=== PATIENT | male | born 1960 | race African-American/Black ===

== ENCOUNTER 2018-10-10 08:11 | Day surgery (SDC) | payer OTHER ==
[2018-10-10] MEDS: CEFAZOLIN 2 GM/50 ML (PMX) 50 ML IVPB (07:00)
[~2018-10-10 08:11] MED LIST: CEFAZOLIN 1 GM INJ; SEVOFLURANE 15 MIN
[2018-10-10] MEDS: SOD CHLORIDE 0.9% 1,000 ML IV ×2 (10:30→22:15)
[2018-10-10 10:39] LABS: ADD MAN DIFF? NO
[2018-10-10 10:43] LABS: HEMATOCRIT 42.5 % (42.0-52.0); HEMOGLOBIN 13.8 g/dl (14.0-18.0); MEAN CORPUSCULAR VOLUME 85.5 fl (82.0-101.0); RED BLOOD COUNT 4.97 10^6/ul (4.70-6.10)
[2018-10-10 10:44] LABS: BASOPHILS % 0.4 % (0.0-2.0); EOSINOPHILS # 0.1 10^3/ul (0.0-0.5); EOSINOPHILS % 1.1 % (0.0-7.0); LYMPHOCYTES # 3.1 10^3/ul (0.8-2.9); LYMPHOCYTES % 43.3 % (15.0-51.0); MEAN CORPUSCULAR HEMOGLOBIN 27.8 pg (29.0-33.0); MEAN CORPUSCULAR HGB CONC 32.5 g/dl (32.0-37.0); MEAN PLATELET VOLUME 10.9 fl (7.4-10.4); MONOCYTE # 0.6 10^3/ul (0.3-0.9); MONOCYTES % 8.5 % (0.0-11.0); NEUTROPHIL # 3.3 10^3/ul (1.6-7.5); NEUTROPHILS % 46.6 % (39.0-77.0); PLATELET COUNT 213 10^3/UL (140-415); RED CELL DISTRIBUTION WIDTH 14.5 % (11.5-14.5)
[2018-10-10 11:01] LABS: ALANINE AMINOTRANSFERASE 24 IU/L (13-69); ALBUMIN 4.2 g/dl (3.3-4.9); ALBUMIN/GLOBULIN RATIO 1.13; ALKALINE PHOSPHATASE 77 IU/L (42-121); ANION GAP 5 (5-13); ASPARTATE AMINO TRANSFERASE 33 IU/L (15-46); BILIRUBIN,INDIRECT 0.9 mg/dl (0-1.1); BILIRUBIN,TOTAL 0.9 mg/dl (0.2-1.3); BLOOD UREA NITROGEN 17 mg/dl (7-20); CALCIUM 9.4 mg/dl (8.4-10.2); CARBON DIOXIDE 29 mmol/L (21-31); CHLORIDE 107 mmol/L (97-110); CREATININE 1.08 mg/dl (0.61-1.24); Estimated GFR > 60 mL/min (>60); GLUCOSE 132 mg/dl (70-220); INR 0.89; POTASSIUM 4.3 mmol/L (3.5-5.1); PROTIME 12.2 Sec (11.9-14.9); SODIUM 141 mmol/L (135-144); TOTAL PROTEIN 7.9 g/dl (6.1-8.1)
[2018-10-10] MEDS ORDERED: ROCURONIUM 50 MG INJ (12:50)
[2018-10-10] MEDS ORDERED: NEOSTIGMINE 3 MG/3 ML SYRINGE ×2 (12:50)
[2018-10-10] MEDS ORDERED: GLYCOPYRROLATE 0.4 MG INJ ×3 (12:50→12:52)
[2018-10-10] MEDS ORDERED: PROPOFOL 20 ML (12:50)
[2018-10-10] MEDS ORDERED: LIDOCAINE 2% (SDV) 5 ML INJ (12:50)
[2018-10-10] MEDS ORDERED: SUCCINYLCHOLINE CHLORIDE 100 MG/5 ML SYG IV (12:50)
[2018-10-10] MEDS ORDERED: LABETALOL HCL 20MG INJ IV (13:00)
[2018-10-10] MEDS ORDERED: MIDAZOLAM 1 MG/ML 2 ML INJ IV (13:00)
[2018-10-10] MEDS ORDERED: DIPHENHYDRAMINE 50 MG INJ IV (13:00)
[2018-10-10] MEDS ORDERED: FENTAnyl 50 MCG/ML VIAL IV (13:00)
[2018-10-10] MEDS ORDERED: HYDROmorphONE 1 MG/5 ML IV SYRINGE IV ×3 (13:00)
[2018-10-10] MEDS ORDERED: METOCLOPRAMIDE 10 MG INJ IV (13:00)
[2018-10-10] MEDS ORDERED: OXYCODONE/ACETAMINOPHEN (5/325) TAB PO (13:00)
[2018-10-10] MEDS ORDERED: EPHEDrine 25 MG/5 ML SYG IV (13:00)
[2018-10-10] MEDS ORDERED: HYDROCODONE/APAP (5/325) TAB PO (13:00)
[2018-10-10] MEDS: POLYMYXIN/BACITRACIN 1L IRRIG IRR (13:09)
[2018-10-10] MEDS: BUPIVACAINE 0.25% (MPF) 30 ML INJ (13:09)
[2018-10-10] MEDS: FENTAnyl 50 MCG/ML VIAL IV ×2 (13:17→14:18)
[2018-10-10] MEDS: hydrALAzine 20 MG INJ IV ×2 (13:27→13:45)
[2018-10-10] MEDS: ONDANSETRON 4 MG INJ IV (13:27)
[2018-10-10] MEDS: MEPERIDINE 25 MG INJ IV (13:28)
[2018-10-10] MEDS: OXYCODONE/ACETAMINOPHEN (5/325) TAB PO (15:14)
[2018-10-10] MEDS: PANTOPRAZOLE (EC) 40 MG TAB PO (16:22)
[2018-10-10] MEDS: KETOROLAC 30 MG INJ IV (16:25)
[2018-10-10] MEDS: morphine 2 MG INJ IV (22:02)
[2018-10-10] MEDS ORDERED: ACETAMINOPHEN 325 MG TAB PO (23:30)
[2018-10-11] MEDS: PANTOPRAZOLE (EC) 40 MG TAB PO (05:34)
[2018-10-11] MEDS: morphine 2 MG INJ IV ×2 (05:36→09:18)
[2018-10-11] MEDS: AMLODIPINE 10 MG TAB PO (09:13)
[2018-10-11] MEDS: ARIPIPRAZOLE 10 MG TAB PO (09:13)
[2018-10-11] MEDS: LORATADINE 10 MG TAB PO (09:14)
[2018-10-11] MEDS: METOPROLOL (XL) 100 MG TAB PO (09:14)
[2018-10-11] MEDS: SOD CHLORIDE 0.9% 1,000 ML IV ×2 (09:40→12:14)
[2018-10-11] MEDS: HYDROCODONE/APAP (5/325) TAB PO (12:14)
[2018-10-11] MEDS ORDERED: ATORVASTATIN 20 MG TAB PO (21:00)
== END 2018-10-11 18:35 | disposition home or self-care (01) ==
LOC: SDS 08:11 → 2NE 17:45 → SDS 10-11 18:35
DX: K40.30 Unilateral inguinal hernia, with obstruction, without gangrene, not specified as recurrent (principal); E78.5 Hyperlipidemia, unspecified
CPT/HCPCS: 49507; 71045; 80053; 85025; 85610; 85730; 93005